=== PATIENT | male | born 1965 | race Caucasian/White ===

== ENCOUNTER 2016-06-04 08:07 | Emergency (ER) | payer MEDICARE ==
[~2016-06-04] VITALS: Ht 190.5 cm; Wt 195.0 kg
[~2016-06-04 08:07] MED LIST: AMBIEN10 MG PO; BYSTOLIC5 MG PO; CELEXA40 MG PO; FLEXERIL10 MG PO; HALFPRIN81 MG PO; LASIX20 MG PO; MOBIC15 MG PO; NEURONTIN300 MG PO; OMEPRAZOLE20 MG PO; PHENTERMINE H37.5 MG PO; POTASSIUM GLUCONATE PO; PRINIVIL20 MG PO; TERAZOSIN HCL2 MG PO; THERA M PLUS T1 EACH PO; ULTRAM50 MG PO; VENTOLIN HFA8 GM INH; XANAX0.5 MG PO
[2016-10-30] MEDS ORDERED: NOVOLOG100 UNIT/2 SUBCUT (14:53)
[2016-10-30] MEDS ORDERED: KEFLEX500 MG PO (15:00)
[2016-11-02] MEDS ORDERED: NYSTOP15 GM TOP (12:13)
[2016-11-02] MEDS ORDERED: LEVEMIR FL100 UNIT/1 SUBCUT (12:20)
[2016-11-02] MEDS ORDERED: NOVOLIN R100 UNIT/1 SUBCUT (12:29)
== END 2016-06-04 09:16 | disposition short-term general hospital (02) ==
LOC: ER 08:07
DX: J45.909 Unspecified asthma, uncomplicated (principal); J06.9 Acute upper respiratory infection, unspecified; G47.30 Sleep apnea, unspecified

== ENCOUNTER 2016-08-04 01:47 | Emergency (ER) | payer MEDICARE ==
[~2016-08-04] VITALS: Ht 190.5 cm; Wt 204.1 kg
[2016-10-30] MEDS ORDERED: NOVOLOG100 UNIT/2 SUBCUT (14:53)
[2016-10-30] MEDS ORDERED: KEFLEX500 MG PO (15:00)
[2016-11-02] MEDS ORDERED: NYSTOP15 GM TOP (12:13)
[2016-11-02] MEDS ORDERED: LEVEMIR FL100 UNIT/1 SUBCUT (12:20)
[2016-11-02] MEDS ORDERED: NOVOLIN R100 UNIT/1 SUBCUT (12:29)
== END 2016-08-04 04:20 | disposition short-term general hospital (02) ==
LOC: ER 01:47
DX: F41.9 Anxiety disorder, unspecified (principal); E11.65 Type 2 diabetes mellitus with hyperglycemia; N17.9 Acute kidney failure, unspecified; F32.9 Major depressive disorder, single episode, unspecified; E11.42 Type 2 diabetes mellitus with diabetic polyneuropathy; J45.909 Unspecified asthma, uncomplicated; I10 Essential (primary) hypertension; E78.5 Hyperlipidemia, unspecified; E66.01 Morbid (severe) obesity due to excess calories; Z79.4 Long term (current) use of insulin; Z79.82 Long term (current) use of aspirin; Z79.899 Other long term (current) drug therapy
CPT/HCPCS: J1815

== ENCOUNTER 2016-08-08 13:03 | Emergency (ER) | payer MEDICARE ==
[~2016-08-08] VITALS: Ht 190.5 cm; Wt 204.1 kg
[2016-08-08] MEDS ORDERED: ATIVAN0.5 MG PO (14:01)
[2016-08-08] MEDS ORDERED: GLUCOPHAGE500 MG PO (14:02)
[2016-08-08] MEDS ORDERED: SENNA-S TABLET1 EACH PO (14:05)
[2016-08-08] MEDS ORDERED: BYSTOLIC10 MG PO (14:06)
[2016-08-08] MEDS ORDERED: CYCLOBENZAPRINE10 MG PO (14:08)
[2016-10-30] MEDS ORDERED: NOVOLOG100 UNIT/2 SUBCUT (14:53)
[2016-10-30] MEDS ORDERED: KEFLEX500 MG PO (15:00)
[2016-11-02] MEDS ORDERED: NYSTOP15 GM TOP (12:13)
[2016-11-02] MEDS ORDERED: LEVEMIR FL100 UNIT/1 SUBCUT (12:20)
[2016-11-02] MEDS ORDERED: NOVOLIN R100 UNIT/1 SUBCUT (12:29)
== END 2016-08-08 16:00 | disposition short-term general hospital (02) ==
LOC: ER 13:03
DX: E11.65 Type 2 diabetes mellitus with hyperglycemia (principal); I10 Essential (primary) hypertension; Z79.84 Long term (current) use of oral hypoglycemic drugs
CPT/HCPCS: J1815